=== PATIENT | male | born 2000 | race Caucasian/White ===

== ENCOUNTER 2020-09-08 18:19 | Emergency (ER) | payer BC ==
[~2020-09-08] VITALS: Ht 188 cm; Wt 117.3 kg
[2020-09-08 18:20] VITALS: TEMP 97.8
[2020-09-08] MEDS ORDERED: NORVASC 10MG10 MG PO (18:25)
[2020-09-08] MEDS ORDERED: ZOLOFT 100MG100 MG PO (18:26)
[2020-09-08] MEDS ORDERED: KLONOPIN 0.5MG0.5 MG PO (19:20)
[2020-09-08 19:35] VITALS: BP 136/70; PULSE 87
== END 2020-09-08 19:35 | disposition home or self-care (01) ==
LOC: COL.ER 18:19
DX: F41.0 Panic disorder [episodic paroxysmal anxiety] (principal)

== ENCOUNTER 2020-09-15 22:22 | Emergency (ER) | payer BC ==
[~2020-09-15] VITALS: Ht 182.9 cm; Wt 113.6 kg
[~2020-09-15 22:22] MED LIST: KLONOPIN 0.5MG0.5 MG PO; NORVASC 10MG10 MG PO; ZOLOFT 100MG100 MG PO
[2020-09-15 22:25] VITALS: TEMP 98
[2020-09-15] MEDS ORDERED: ZOLOFT 25MG25 MG PO (23:03)
[2020-09-15 23:51] VITALS: BP 148/97; PULSE 101
== END 2020-09-15 23:51 | disposition home or self-care (01) ==
LOC: COL.ER 22:22
DX: F41.0 Panic disorder [episodic paroxysmal anxiety] (principal); R07.9 Chest pain, unspecified; R42 Dizziness and giddiness

== ENCOUNTER 2024-03-17 16:28 | Emergency (ER) | payer OTHER ==
[~2024-03-17] VITALS: Ht 188 cm; Wt 113.6 kg
[~2024-03-17 16:28] MED LIST changes: +ZOLOFT 25MG25 MG PO
[2024-03-17 16:43] VITALS: TEMP 98.4
[2024-03-17] MEDS ORDERED: Oxymetazoline 0.05% Nasal Spray 30 ML BOTTLE NS ONE (17:15)
[2024-03-17 17:50] VITALS: BP 111/70; PULSE 82
== END 2024-03-17 17:50 | disposition home or self-care (01) ==
LOC: COL.ER 16:28
DX: R04.0 Epistaxis (principal)